=== PATIENT | male | born 1965 | race Two or more races ===

== ENCOUNTER 2019-02-21 05:45 | Day surgery (SDC) | payer OTHER ==
[~2019-02-21 05:45] MED LIST: FENOFIBRATE50 MG PO; FLECAINIDE ACE100 MG PO; NEXIUM10 MG PO; SINGULAIR10 MG PO
[2019-02-21] MEDS ORDERED: LEVAQUIN500 MG PO (10:49)
== END 2019-02-21 11:35 | disposition home or self-care (01) ==
LOC: CIR.AMB 05:45
DX: S62.633A Displaced fracture of distal phalanx of left middle finger, initial encounter for closed fracture (principal); S66.323A Laceration of extensor muscle, fascia and tendon of left middle finger at wrist and hand level, initial encounter

== ENCOUNTER 2023-12-06 09:02 | Outpatient (CLI) | payer OTHER ==
[~2023-12-06 09:02] MED LIST changes: +LEVAQUIN500 MG PO
== END 2023-12-06 09:03 | disposition home or self-care (01) ==
LOC: NUCLEAR 09:02
DX: I48.0 Paroxysmal atrial fibrillation (principal)

== ENCOUNTER 2024-08-21 12:45 | Outpatient (CLI) | payer OTHER | END 2024-08-21 12:58 | disposition home or self-care (01) | LOC: SONOGRAMA 12:45 | PROVIDERS: ATTEND Orthopaedic Surgery | DX: M25.512 Pain in left shoulder (principal); M75.112 Incomplete rotator cuff tear or rupture of left shoulder, not specified as traumatic ==

== ENCOUNTER 2025-03-16 08:58 | Outpatient (CLI) | payer OTHER | END 2025-03-16 09:07 | disposition home or self-care (01) | LOC: RAD 08:58 | DX: M75.52 Bursitis of left shoulder (principal); M17.9 Osteoarthritis of knee, unspecified ==

== ENCOUNTER 2025-06-01 12:13 | Outpatient (CLI) | payer OTHER | END 2025-06-01 12:25 | disposition home or self-care (01) | LOC: RAD 12:13 | PROVIDERS: ATTEND Specialist | DX: J18.0 Bronchopneumonia, unspecified organism (principal) ==

== ENCOUNTER 2025-06-17 10:06 | Outpatient (CLI) | payer OTHER | END 2025-06-17 10:10 | disposition home or self-care (01) | LOC: RAD 10:06 | PROVIDERS: ATTEND Orthopaedic Surgery | DX: M25.551 Pain in right hip (principal); M54.50 Low back pain, unspecified ==

== ENCOUNTER → 2025-11-06 08:36 | Outpatient (CLI) | payer OTHER | END | disposition home or self-care (01) | LOC: NUCLEAR 08:36 | DX: I48.0 Paroxysmal atrial fibrillation (principal) ==